=== PATIENT | female | born 1955 ===

== ENCOUNTER → 2018-12-03 | Outpatient (CLI) | payer OTHER ==
[~2018-12-03] MED LIST: GABA300C18 PO
--- NOTE | 2018-12-03 10:02 | PAIN ---
DATE OF SERVICE: 12/03/2018 INITIAL CONSULTATION FOR PAIN CLINIC CHIEF COMPLAINT: Neck and bilateral upper extremity pain, left greater than right. HISTORY OF PRESENT ILLNESS: This is a 63-year-old female, who presents with history of pain for about 2 years, increasing gradually, not a result of any specific injury or action that she is aware of in the base of the neck, bilateral shoulders, bilateral upper extremities, worse on the left than the right with significant radiating pain into the anterior biceps, anterior forearms and posterior forearms bilaterally, worse again on the left, becoming more constant now with time for the numbness and tingling in the hands when she has been dropping some items, but no overt loss of strength. The patient reports it is aching and dull in the base of the neck as well as the shoulders posteriorly and into the arms anteriorly, for the most part into the thumb and first and second fingers, more on the left side than the right, but present bilaterally. The patient has had no current medication treatments except for gabapentin which she reports did not help significantly. She has not had any physical therapies, any current chiropractic treatments or other modalities. She is doing some stretching of her neck and shoulders on her own as well as with the low back. The patient reports disability rating from 0-10, 10 being the worst, is at 0 in most categories, but at 10 in occupational activity. The patient has tried no other modalities of medications that have worked to help. Again, the gabapentin is not significantly improving the pain and she is taking 300 mg at bedtime. The patient had MRI scan, which is pending at time of this dictation with office notes from her primary physician reportedly showing degenerative disk changes C5-C6, C6-C7 and C7-T1 with potential possible extruded disk material at C6-C7. The patient reports increased fatigability with both the upper extremities, again worse on the left side and with turning her head to the left side can increase the symptoms on the left side only, but turning the right does not. PAST MEDICAL HISTORY: Significant for arthritis, dizziness, headaches, vertigo, cataracts. PREVIOUS SURGERY: Include left eye cataract extraction, left carpal tunnel release and lumbar surgery about 25 years ago. CURRENT MEDICATIONS: Include only gabapentin 300 mg at bedtime. ALLERGIES: The patient has no known drug allergies. FAMILY HISTORY: Significant for no major medical problems or conditions that she is aware of. SOCIAL HISTORY: The patient does not drink alcohol; does not use tobacco or smoke; does not use any illegal, illicit or recreational drugs; is and lives with her spouse, lives locally here in [place], [place]. REVIEW OF SYSTEMS: The patient's review of systems is positive for those items mentioned in history of present illness. All systems reviewed and otherwise negative. It is complete, full and well documented on the patient's chart. PHYSICAL EXAMINATION: VITAL SIGNS: The patient's blood pressure is 139/78, pulse ____, respirations 18, temperature is 98.1 degrees Fahrenheit, height is 4 feet 10 inches, and weight is 135 pounds. GENERAL: The patient is awake, alert, oriented, appropriate, very pleasant demeanor. HEENT: Shows normocephalic, atraumatic. Extraocular movements are intact and symmetrical. Oral cavity, mucous membranes are moist and pink. Dentition is intact. NECK: Shows anterior throat supple without palpable lymphadenopathy noted. Swallow reflex is symmetrical. CHEST: Shows normal on inspection. Breath sounds are clear to auscultation bilaterally. HEART: Shows S1 and S2 are clear. No murmurs auscultated. ABDOMEN: Soft, nontender, nondistended. No palpable organomegaly is noted. No rebound or guarding demonstrated. BACK: Shows spine grossly in the midline, normal-appearing cervical lordotic curvature and thoracic kyphotic curvature, minor flattening of lumbar lordotic curvature with well-healed surgical scarring noted. Cervical paraspinous muscle shows symmetrical on inspection and on palpation some [id number] tenderness in the inferior aspect of the cervical paraspinous musculature bilaterally, but only inferiorly, somewhat more tender on the left than the right. This is true into the superior, medial and lateral trapezius again without trigger points, but with firm musculature more on the left than the right with tenderness. The patient has good rotational motion of cervical spine in both extension and forward flexion and right lateral rotation past 45 degrees closer to 90 degrees without difficulty. Left lateral rotation past 45 degrees causes an increased pain. The patient's neck and shoulder with some radiating pain into the anterior deltoid as is relieved with correction to midline with cervical spine rotation. The patient's upper extremities show deep tendon reflexes 2+ in the biceps and triceps tendons. Motor exam is strong with hydrodynamics professor strength rated at 5/5 and equal as is bicep and tricep flexion, symmetrical and equal. Peripheral pulses are 2+ in radial distribution. No peripheral edema is noted. Upper extremities are warm and dry to touch, equal in color and appearance. Shoulder shrug is strong and intact without loss of strength on resistance with some minor pain reported on the left side of the base of the neck and shoulder. This is true with abduction of the shoulder to 90 degrees with some pain in the left base of the shoulder as well, but no loss of strength bilaterally. The patient's skin shows warm, dry, good turgor. No edema. No sores, rashes or bruising. IMPRESSION: 1. This is a 63-year-old female with approximate 2-year history of increasing pain in the base of the neck, upper extremities, worse on the left than the right in a radicular pattern following a C6-C7, primarily dermatomal pattern. 2. MRI is pending at the time of this dictation with interpretation showing possible extruded disk material at C6-C7, C7-T1 with degenerative disk disease at both levels. 3. Arthritis. 4. History of dizziness and headaches. PLAN: Options were discussed with the patient including conservative medical management, physical therapies, and interventional techniques. She would like to pursue with interventional techniques as she has had some therapies in the past for her back, which she reports were not significantly helpful and would like to try something more definitive for her radicular cervical pain. We discussed a cervical epidural steroid injection using descriptions as well as anatomical models to describe the procedure. We will wait for patient's preauthorization with her insurance provider. In the meantime, we will try Medrol Dosepak. The patient was given instruction as well as side effects to be aware of with the medication and will follow up in approximately one week. We will plan on cervical epidural steroid injection at that time. DORA CANALES MD DR: BALDEV/jm JOB#: [id number] / [id number] MILA Gilbert DO
== END | disposition home or self-care (01) ==
LOC: PNCL 07:51
PROVIDERS: ATTEND Anesthesiology
DX: M54.2 Cervicalgia (principal); M79.602 Pain in left arm; M79.601 Pain in right arm; M19.90 Unspecified osteoarthritis, unspecified site; Z98.42 Cataract extraction status, left eye; Z98.890 Other specified postprocedural states
CPT/HCPCS: G0463

== ENCOUNTER → 2018-12-16 | Outpatient (CLI) | payer OTHER ==
[~2018-12-16] MED LIST changes: +IOHEXOL 180 MG/ML 10 ML VIAL. ONE; +methylPREDNISolone ACETATE 40 MG/ML VIAL. ONE; +methylPREDNISolone ACETATE 80 MG/ML VIAL. ONE
--- NOTE | 2018-12-16 14:26 | PAIN ---
DATE OF SERVICE: 12/16/2018 DIAGNOSES: Cervical radiculopathy with cervical degenerative disk disease. HISTORY OF PRESENT ILLNESS: The patient is a 63-year-old female who returns for followup status post initial evaluation that is for cervical epidural steroid injection. The patient has gotten this approved with her insurance provider and would like to proceed today. The patient reports still significant pain in the base of the neck and the left upper extremity and arm as it was previously. The patient reports she had been taking Medrol Dosepak, which helped to some extent, but was only mildly decreasing the pain. The patient reports still pain in the base of the neck, shoulder, radiating into the forearm and hand, especially thumb and first finger on the left side. The patient reports no new motor or sensory deficits. The patient rates her pain as a 7 on a scale of 10 at its worst over the past week, 7 on average and a 5 at its least. The patient reports it is a 5 today. The patient reports a dull aching pain, shooting and radiating into the left arm as previously. The patient reports no new motor or sensory deficits, no new bowel or bladder incontinence or other complaints. Does not awaken her from sleep at night. PHYSICAL EXAMINATION: VITAL SIGNS: The patient's blood pressure 124/65, pulse is 60, respirations 16, temperature is 98.2 degrees Fahrenheit. Height is 4 feet 10 inches, weight is 138 pounds. GENERAL: The patient is awake, alert, oriented, appropriate, very pleasant demeanor. HEENT: Shows normocephalic, atraumatic. Extraocular movements are intact and symmetrical. Oral cavity: Mucous membranes moist and pink. Dentition is intact. NECK: Shows anterior throat supple without palpable lymphadenopathy noted. Swallow reflex is symmetrical. CHEST: Shows normal on inspection. Breath sounds are clear to auscultation bilaterally. HEART: Shows S1, S2 clear. No murmurs auscultated. ABDOMEN: Soft, nontender, nondistended. No palpable organomegaly is noted. No rebound or guarding demonstrated. BACK: Shows spine grossly in the midline, normal-appearing cervical lordotic curvature and thoracic kyphotic curvature. Cervical paraspinous musculature shows symmetrical on inspection. On palpation shows moderate tenderness diffusely, but only diffusely without radiation. The patient has good rotational motion of cervical spine, both laterally greater than 45 degrees closer to 90 degrees right and left with full extension, full forward flexion without significant increase in pain. EXTREMITIES: The patient's upper extremities show deep tendon reflexes 2+ in the biceps and triceps tendons. Motor exam is 5/5 pizza maker strength, bicep and tricep flexion and symmetrical. Peripheral pulses are 2+ radial distribution. No peripheral edema is noted. Options were discussed with the patient. The patient's old chart was reviewed as her current medication regimen and updated. Current review of systems is updated today as well. We will proceed with a cervical epidural steroid injection today with fluoroscopic guidance. Risks were again discussed including, but not limited to bleeding, infection, possibility of epidural hematoma, subsequent neurological compromise, dural puncture, headaches, spinal cord and/or nerve damage, side effects of steroid medication and poor results regarding pain control. The patient understands and wished to proceed. The patient will return to clinic in approximately 2 weeks for followup, was counseled on return appointment, activity level and side effects to be aware of. DIAGNOSES: Cervical radiculopathy with cervical degenerative disk disease. PROCEDURE: Cervical epidural steroid injection, translaminar approach C6-C7 level using C-arm fluoroscopic guidance under sterile prep and drape using local anesthetic. MEDICATION INJECTED: A total of 120 mg Depo-Medrol plus 5 mL of preservative-free normal saline and 2 mL of contrast. CONDITION AT DISCHARGE: Stable. The patient tolerated the procedure well, had no complications. DORA CANALES MD DR: BALDEV/jm JOB#: [id number] / [id number]
== END ==
LOC: PNCL 08:03
PROVIDERS: ATTEND Anesthesiology
DX: M50.123 Cervical disc disorder at C6-C7 level with radiculopathy (principal)
CPT/HCPCS: 62321; J1030; J1040; Q9965

== ENCOUNTER → 2019-01-08 | Outpatient (CLI) | payer OTHER ==
[~2019-01-08] MED LIST changes: -IOHEXOL 180 MG/ML 10 ML VIAL. ONE; -methylPREDNISolone ACETATE 40 MG/ML VIAL. ONE; -methylPREDNISolone ACETATE 80 MG/ML VIAL. ONE
--- NOTE | 2019-01-08 09:19 | PAIN ---
DATE OF SERVICE: 01/08/2019 DIAGNOSES: Cervical radiculopathy with cervical degenerative disk disease. HISTORY OF PRESENT ILLNESS: The patient is a 63-year-old female who returns for followup status post cervical epidural steroid injection x 1. The patient reports about 100% improvement in the pain. She only has some full sensation in the neck and still some weakness in the left arm, but only very minimal. The patient reports no new motor or sensory deficits or other complaints. I have increased her activity with greater ease and comfort, performing activities at home as well as at work, driving car easier. The patient reports she is sleeping well at night, does not awaken from sleep. Reports pain is 0 on a scale of 10 at all times in the last week and is very pleased with her progress. The patient has physical therapy scheduled and will be starting that apparently next week. She is following up with that later today to make sure that this may help with her strength as well. The patient reports otherwise doing very well, very pleased with her progress. No new motor or sensory deficits or other complaints. PHYSICAL EXAMINATION: VITAL SIGNS: The patient's blood pressure 124/72, pulse 59, respirations 18, temperature 97.7 degrees Fahrenheit, height is 4 feet 10 inches, weighs 140 pounds. GENERAL: The patient is awake, alert, oriented and appropriate. She has very pleasant demeanor. HEENT EXAMINATION: Shows normocephalic, atraumatic. Extraocular movements are intact and symmetrical. Oral cavity, mucous membranes are moist and pink. Dentition is intact. NECK: Shows anterior throat supple, without palpable lymphadenopathy noted. Swallow reflex is symmetrical. CHEST: Shows normal with inspection. Breath sounds are clear to auscultation bilaterally. HEART: Shows S1, S2 clear. No murmurs auscultated. ABDOMEN: Soft, nontender and nondistended. No palpable organomegaly is noted. No rebound or guarding demonstrated. BACK: Shows spine grossly in the midline. Normal appearing cervical lordotic curvature and thoracic kyphosis. Cervical paraspinous muscle shows symmetrical on inspection, on palpation shows some moderate tenderness, but only very mildly in the inferior aspect of the cervical paraspinous muscles bilaterally into the superior medial trapezius, full rotational motion is demonstrated both laterally greater than 45 degrees, close to 90 degrees, right and left as well as full extension, full forward flexion without significant pain reported. EXTREMITIES: Upper extremities show deep tendon reflexes 2+ in the biceps and triceps tendons. Motor exam is 5/5 with cash analyst strength, biceps and triceps flexion. Peripheral pulses are 2+. No peripheral edema is noted bilaterally. Options were discussed with the patient. The patient's old chart was reviewed as well as her current medication regimen updated. Current review of systems updated today as well. We will hold on any further injections at this time as she is doing quite well. We would like to increase her activity. We will have physical therapy starting next week as well. The patient was encouraged to maintain therapy exercises and also activity as tolerated. We will follow up at this time on as needed basis. DORA CANALES MD DR: BALDEV/nts JOB#: [id number] / [id number]
== END | disposition home or self-care (01) ==
LOC: PNCL 07:50
PROVIDERS: ATTEND Anesthesiology
DX: M50.30 Other cervical disc degeneration, unspecified cervical region (principal)
CPT/HCPCS: G0463